=== PATIENT | female | born 1970 | race Caucasian/White ===

== ENCOUNTER 2018-08-11 16:49 | Emergency (ER) | payer OTHER ==
[~2018-08-11] VITALS: Ht 167.6 cm; Wt 77.7 kg
[2018-08-11] MEDS ORDERED: DIPHENHYDRAMINE 50 MG/ML, 1ML IVPush ONE (18:00)
[2018-08-11] MEDS ORDERED: METOCLOPRAMIDE 5 MG/ML, 2ML IVPush ONE (18:00)
[2018-08-11] MEDS ORDERED: METOCLOPRAMIDE 5 MG/ML, 2ML ONE (18:15)
[2018-08-11] MEDS ORDERED: DIPHENHYDRAMINE 50 MG/ML, 1ML ONE (18:15)
[2018-08-11 18:23] LABS: ALANINE AMINOTRANSFERASE 20 U/L (12-78); ALBUMIN 3.4 g/dL (3.4-5.0); ANION GAP 7 mmol/L (5-15); CALCIUM 7.7 mg/dL (8.5-10.1); CHLORIDE 107 mmol/L (98-107); CREATININE 0.79 mg/dL (0.55-1.02)
[2018-08-11 18:25] LABS: ALKALINE PHOSPHATASE 40 U/L (45-117); BILIRUBIN,TOTAL 0.4 mg/dL (0.2-1.0); TOTAL PROTEIN 6.2 g/dL (6.4-8.2)
[2018-08-11 18:45] LABS: HEMOGRAM NOTE RECHECKED; MD YES; MEAN CORPUSCULAR HEMOGLOBIN 31.7 pg (27.0-34.8); MEAN CORPUSCULAR HGB CONC 34.2 g/dL (32.4-35.8); MEAN CORPUSCULAR VOLUME 92.5 fL (80-100); PLATELET COUNT 99 x10^3/uL (130-400); RED BLOOD COUNT 3.83 x10^6/uL (3.82-5.3); RED CELL DISTRIBUTION WIDTH 12.4 % (9.6-15.2)
[2018-08-11 18:50] LABS: <PLATELET ESTIMATE> DECREASED; <PLT MORPHOLOGY> NORMAL PLT MORPH; <RBC MORPHOLOGY> NORMAL; BAND#(MANUAL) 0.24 x10^3/uL; BANDS%(MANUAL) 10 % (0-7); EOS#(MANUAL) 0.02 x10^3/uL (0.0-0.4); EOS% (MANUAL) 1 % (1-7); LYMPH#(MANUAL) 0.77 x10^3/uL (1-3.4); LYMPHS% (MANUAL) 32 % (22-44); MONOS#(MANUAL) 0.19 x10^3/uL (0.3-2.7); MONOS% (MANUAL) 8 % (2-9); SEG#(MANUAL) 1.18 x10^3/uL (1.8-6.8); SEGS% (MANUAL) 49 % (42-75)
[2018-08-11] MEDS ORDERED: LIDOCAINE-MPF 1%, 5ML ONE (19:28)
[2018-08-11 21:03] LABS: GLUCOSE, CSF 52 mg/dL (40-80); TOTAL PROTEIN,CSF 37 mg/dL (15-45)
[2018-08-11 21:23] VITALS: BP 112/66
== END 2018-08-11 22:02 | disposition home or self-care (01) ==
LOC: ED 21:27
DX: R51 Headache (principal); R50.9 Fever, unspecified; B34.9 Viral infection, unspecified; R11.2 Nausea with vomiting, unspecified
CPT/HCPCS: 36415; 62270; 70450; 80053; 82945; 83605; 84157; 85025; 86308; 87040; 87070; 87081; 87205; 87252; 87880; 89051; 96374; 96375; 99284; J1200; J2765

== ENCOUNTER 2018-08-13 04:39 | Emergency (ER) | payer OTHER ==
[~2018-08-13] VITALS: Ht 167.6 cm; Wt 75.9 kg
[2018-08-13 06:00] VITALS: BP 99/53
[2018-08-13] MEDS ORDERED: SODIUM CHLORIDE 0.9% 1,000ML IVBOLUS ONE (06:00)
[2018-08-13] MEDS ORDERED: SODIUM CHLORIDE FLUSH 10ML SYR IVF ONE (06:00)
[2018-08-13] MEDS ORDERED: METOCLOPRAMIDE 5 MG/ML, 2ML IVPush ONE (06:00)
== END 2018-08-13 07:12 | disposition home or self-care (01) ==
LOC: ED 04:54
DX: G97.1 Other reaction to spinal and lumbar puncture (principal)
CPT/HCPCS: 99282; 99283